=== PATIENT | female | born 1955 | race Caucasian/White ===

== ENCOUNTER → 2020-11-04 | Outpatient (CLI) | payer OTHER ==
[2020-11-05 11:15] LABS: HBSAG SCREEN Negative (Negative); HCV AB <0.1 (0.0-0.9); HEP B CORE AB, TOT Negative (Negative)
[2020-11-07 01:07] LABS: CCP ANTIBODIES IGG/IGA <1 units (0-19)
[2020-11-08 22:09] LABS: HLA B 27 DISEASE ASSOCIATION Negative (.)
== END ==
LOC: LAB 12:37
PROVIDERS: Internal Medicine
DX: M06.9 Rheumatoid arthritis, unspecified (principal); M19.90 Unspecified osteoarthritis, unspecified site; R76.8 Other specified abnormal immunological findings in serum; M25.50 Pain in unspecified joint; H20.9 Unspecified iridocyclitis; R76.0 Raised antibody titer; D89.89 Other specified disorders involving the immune mechanism, not elsewhere classified; Z79.899 Other long term (current) drug therapy
CPT/HCPCS: 73130; 81374; 83520; 86200; 86704; 86803; 87340

== ENCOUNTER → 2021-07-15 | Outpatient (CLI) | payer OTHER | LOC: KOH-I 11:10 | DX: F17.210 Nicotine dependence, cigarettes, uncomplicated (principal); R91.8 Other nonspecific abnormal finding of lung field | CPT/HCPCS: 71271 ==